=== PATIENT | female | born 1970 | race Two or more races ===

== ENCOUNTER 2016-09-20 02:47 | Emergency (ER) | payer SELFPAY ==
[~2016-09-20] VITALS: Ht 147.3 cm; Wt 70.8 kg
--- NOTE | 2016-09-20 02:54 | PHYS DOC ---
Past Medical History Past Medical History: Other Additional Past Medical Histor: ulcer Past Surgical History: No Surgical History Alcohol Use: None Drug Use: None Adult General Chief Complaint Chief Complaint: THUMB HPI HPI Patient is a 46 year old female who presents with right thumb pain. She's been going on for last 3 days. She denies any fevers chills nausea or vomiting. She is unsure she's ever had a tetanus shot. Review of Systems Review of Systems Constitutional: Denies fever or chills [] Eyes: Denies change in visual acuity, redness, or eye pain [] HENT: Denies nasal congestion or sore throat [] Respiratory: Denies cough or shortness of breath [] Cardiovascular: No additional information not addressed in HPI [] GI: Denies abdominal pain, nausea, vomiting, bloody stools or diarrhea [] : Denies dysuria or hematuria [] Musculoskeletal: Denies back pain or joint pain [] Integument: Denies rash, positive for skin lesion on the right thumb Neurologic: Denies headache, focal weakness or sensory changes [] Endocrine: Denies polyuria or polydipsia [] Current Medications Current Medications Current Medications Medications (Trade) Dose Ordered Sig/Mallory Start Time Stop Time Status Last Admin Dose Admin Acetaminophen/ Hydrocodone Bitart (Lortab 5/325) 2 tab 1X ONCE 09/20/16 03:45 09/20/16 03:46 DC 09/20/16 04:03 2 TAB Clindamycin HCl (Cleocin) 300 mg 1X ONCE 09/20/16 03:45 09/20/16 03:46 DC 09/20/16 04:03 300 MG Diphtheria/ Tetanus/Acell Pertussis (Boostrix) 0.5 ml ONCE ONCE 09/20/16 03:15 09/20/16 03:16 DC 09/20/16 03:27 0.5 ML Lidocaine/Sodium Bicarbonate (Buffered Lidocaine 1%) 20 ml 1X ONCE 09/20/16 03:15 09/20/16 03:16 DC 09/20/16 03:26 20 ML Allergies Allergies Allergies Coded Allergies Type Severity Reaction Last Updated Verified No Known Drug Allergies 08/20/13 No Physical Exam Physical Exam Constitutional: Well developed, well nourished, no acute distress, non-toxic appearance. [] HENT: Normocephalic, atraumatic, bilateral external ears normal, oropharynx moist, no oral exudates, nose normal. [] Eyes: PERRLA, EOMI, conjunctiva normal, no discharge. [] Neck: Normal range of motion, no tenderness, supple, no stridor. [] Cardiovascular:Heart rate regular rhythm, no murmur [] Lungs & Thorax: Bilateral breath sounds clear to auscultation [] Abdomen: Bowel sounds normal, soft, no tenderness, no masses, no pulsatile masses. [] Skin: Warm, dry, edema around the nail on the right thumb on the medial lateral aspect of the thumb, tender to palpation diffusely around the base of the nail, no tenderness around the tip of the thumb Back: No tenderness, no CVA tenderness. [] Extremities: No tenderness, no cyanosis, no clubbing, ROM intact, no edema. [] Neurologic: Alert and oriented X 3, normal motor function, normal sensory function, no focal deficits noted. [] Psychologic: Affect normal, judgement normal, mood normal. [] Current Patient Data Vital Signs Vital Signs Date Time Temp Pulse Resp B/P (MAP) Pulse Ox O2 Delivery O2 Flow Rate FiO2 09/20/16 04:03 22 99 09/20/16 02:56 98.1 91 Room Air 98.1 EKG EKG [] Radiology/Procedures Radiology/Procedures [] Impressions: Paronychia Course & Med Decision Making Course & Med Decision Making Pertinent Labs and Imaging studies reviewed. (See chart for details) Her tetanus was updated. Her paronychia was opened with a 16-gauge needle and purulent material was expressed. Wound culture was obtained. She was given 300 mg, myosin and being discharged with clindamycin 300 mg 3 times daily for 10 days and [place]. Return precautions given for worsening pain, swelling, fevers or other concerns. The patient and her family is agreeable Plan B discharged in stable condition this time. Patient was instructed not to drive while taking [place] as it can impair judgment and make her sleepy. Dragon Disclaimer Dragon Disclaimer This electronic medical record was generated, in whole or in part, using a voice recognition dictation system. Incision and Drainage Indication: abscess Procedure: The patient was positioned appropriately. Local anesthesia was 2 cc lidocaine. An incision was then made over the apex of the lesion and purulent material was expressed. The patients tetanus status updated as needed. The patient tolerated the procedure well. Complications: none. Departure Departure Impression: Primary Impression: Paronychia Disposition: 01 HOME, SELF-CARE Condition: STABLE Referrals: [facility] (PCP) Patient Instructions: Paronychia Additional Instructions: You have an infection on your thumb next to your fingernail. You will need take antibiotic for the next 10 days. You can take pain meds as needed. Be careful taking these medicines as it can impair judgment and make you sleepy. Please don 't drive or taking this pain medicine. If your thumb gets more painful, swollen , you develop fever or you have other concerns please return back to emergency department for further evaluation. You will need follow-up with her primary care physician within the next 7 days. Scripts Hydrocodone/Apap 5-325 (NORCO 5-325 TABLET) 1 Each Tablet 1-2 TAB PO PRN Q6HRS Y for PAIN, #20 TAB 0 Refills Prov: SUMA BOOTH MD 09/20/16 Clindamycin Hcl (CLINDAMYCIN HCL) 300 Mg Capsule 1 CAP PO TID, #30 CAP Prov: SUMA BOOTH MD 09/20/16 Problem Qualifiers Primary Impression: Paronychia Laterality: right Qualified Codes: L03.011 - Cellulitis of right finger SUMA BOOTH MD Sep 20, 2016 02:54
[2016-09-20 02:56] VITALS: BP 118/80
[2016-09-20] MEDS ORDERED: LIDOCAINE 1% / SOD BICARB 8.4% 20 ML VIAL. IJ ONE (03:15)
[2016-09-20] MEDS ORDERED: DIPHTH,PERTUSS(ACELL),TET TOX 0.5 ML DISP.SYRIN. VAX IM ONE (03:15)
[2016-09-20] MEDS ORDERED: CLINDAMYCIN HCL 150 MG CAPSULE. PO ONE (03:45)
[2016-09-20] MEDS ORDERED: HYDROcodone/APAP 5/325MG 1 TAB TABLET PO ONE (03:45)
[2016-09-20] MEDS ORDERED: HYDR-971 PO (05:12)
[2016-09-20] MEDS ORDERED: CLIN300C8 PO (05:12)
== END 2016-09-20 05:21 | disposition home or self-care (01) ==
LOC: ER 02:47
DX: L03.011 Cellulitis of right finger (principal)
CPT/HCPCS: 10060; 87070; 87205; 90471; 90715; 99284-25